=== PATIENT | female | born 1995 | race Caucasian/White ===

== ENCOUNTER → 2017-06-18 | Outpatient (CLI) | payer OTHER ==
[~2017-06-18] MED LIST: ESCITALOPRAM OXA5 MG PO; GADOBUTROL 7.5 MMOL/7.5 ML VIAL INT ART ONE; IOHEXOL 300 MG/ML 50 ML VIAL. INT ART ONE; LIDOCAINE 1% Multi-Dose 20 ML VIAL. ID ONE; ZOLP5TAB PO
--- NOTE | 2017-06-18 16:48 | KCIC ---
Fluoroscopically guided injection of the right shoulder prior to MRI arthrogram 06/18/2017 Clinical history: Right shoulder pain and popping. Technique: After the risks and benefits of the procedure were explained to the patient, written informed consent was obtained. The anterior skin surface of the right shoulder was prepped and draped in sterile fashion. 1% lidocaine was used as local anesthetic. Under fluoroscopic guidance, a 22-gauge spinal needle was advanced into the anterior aspect of the right glenohumeral joint. Intra-articular position of the needle was confirmed with 5 cc of Isovue 200. Following this a solution of 5 cc of lidocaine, 5 cc of Omnipaque 300, 10 cc normal saline and 0.1 cc of Gadavist were injected into the right glenohumeral joint under fluoroscopic control. Following this the needle was removed and hemostasis achieved at the puncture site. A sterile bandage was placed on the skin puncture site. The patient was then taken to MRI for further imaging. The patient tolerated the procedure well and there were no immediate complications. The total fluoroscopic time for this study was 1 minute 13 seconds. 1 digital fluoroscopic captured radiograph of the right shoulder was obtained. Impression: Technically successful injection of the right shoulder joint under fluoroscopy as outlined above. Electronically signed by: Pradeep Persaud MD (06/18/2017 4:44 PM) [email or web address]
--- NOTE | 2017-06-19 08:33 | KCIC ---
MR arthrogram of the right shoulder Indication: Pain with abduction. Technique: Intra-articular contrast injected into the glenohumeral joint and is reported separately. Patient could not tolerate Aber positioning. Findings: Acromioclavicular joint:Intact. Rotator cuff: No evidence of rotator cuff tear. No significant fluid or contrast accumulation in the subacromial subdeltoid bursa. Subdeltoid bursa:No significant fluid or contrast accumulation. Articular cartilage: No acute cartilage defect or advanced DJD. Labrum:No evidence of labral tear or para labral cyst Biceps tendon: Intact Bones: No lesion or acute fracture. Soft tissue: No acute findings. Impression: No evidence of acute abnormality or internal derangement. Electronically signed by: Faisal Cheng MD (06/18/2017 1:16 PM) [facility]
== END | disposition home or self-care (01) ==
LOC: KCIC 10:26
PROVIDERS: ATTEND Physician Assistant Medical
DX: M25.511 Pain in right shoulder (principal); R53.1 Weakness
CPT/HCPCS: 73040; 73222; A9585; Q9967